=== PATIENT | female | born 1955 | race African-American/Black ===

== ENCOUNTER 2019-11-26 09:43 | Emergency (ER) | payer OTHER ==
[~2019-11-26] VITALS: Ht 157.5 cm; Wt 78.1 kg
[~2019-11-26 09:43] MED LIST: ALPR0.5T PO; AMLO10TA8 PO; CLIN150C14 PO; EZET10TA20 PO; HYDR-2765 PO; IBUP-1060 PO; LORA-781 PO; LORA10TA3 PO; LOSA25TA54 PO; MELA1TAB13 PO; PANT40TA77 PO; POTA10TA12 PO; POTA10TA31 PO
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
[2019-11-26] MEDS ORDERED: KETOROLAC 60 MG/2 ML VIAL. IM ONE (10:15)
[2019-11-26] MEDS ORDERED: ORPHENADRINE CITRATE 60 MG/2 ML VIAL. IM ONE (10:15)
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
[2019-11-26 11:00] VITALS: BP 137/68
[2019-11-26] MEDS ORDERED: NAPR-514 PO (11:52)
[2019-11-26] MEDS ORDERED: ORPHENADRINE CITRATE 60 MG/2 ML VIAL. IV ONE (12:00)
[2019-11-26] MEDS ORDERED: KETOROLAC 30 MG/ML VIAL. IV ONE (12:00)
== END 2019-11-26 12:02 | disposition home or self-care (01) ==
LOC: ER 09:43
DX: S43.491A Other sprain of right shoulder joint, initial encounter (principal); K21.9 Gastro-esophageal reflux disease without esophagitis; E78.00 Pure hypercholesterolemia, unspecified; I10 Essential (primary) hypertension; Z91.040 Latex allergy status; Z88.0 Allergy status to penicillin; V49.9XXA Car occupant (driver) (passenger) injured in unspecified traffic accident, initial encounter; Y93.89 Activity, other specified; Y92.488 Other paved roadways as the place of occurrence of the external cause; Y99.8 Other external cause status
CPT/HCPCS: 71045; 73030; 96372; 99284; J1885; J2360

== ENCOUNTER → 2020-02-08 | Outpatient (CLI) | payer OTHER ==
[~2020-02-08] MED LIST changes: +NAPR-514 PO
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
== END | disposition home or self-care (01) ==
LOC: KCIC CT 11:05
PROVIDERS: ATTEND Nurse Practitioner Family
DX: S43.401S Unspecified sprain of right shoulder joint, sequela (principal); M19.011 Primary osteoarthritis, right shoulder; X58.XXXS Exposure to other specified factors, sequela
CPT/HCPCS: 73200